=== PATIENT | female | born 1955 | race Caucasian/White ===

== ENCOUNTER → 2024-12-24 | Emergency (ER) | payer BC ==
[~2024-12-24] VITALS: Ht 172.7 cm; Wt 61.5 kg
[~2024-12-24] MED LIST: METH4TAB81 PO
[2024-12-24 07:21] VITALS: BP 144/84; PULSE 84; RESP 16; TEMP 97.8; O2SAT 99
--- NOTE | 2024-12-24 08:23 | Physician Documentation ---
History of Present Illness General Chief Complaint: Rash Stated Complaint: HIVES Time Seen by MD: 08:18 History of Present Illness Initial Comments The patient is a 69-year-old female with no significant past medical history who presents with hives that woke her up about 3:00 a.m. in the morning. She did not have any wheezing or respiratory symptoms. Medication Reconciliation Allergies: Coded Allergies: No Known Allergies (Unverified , 12/24/24) Review of Systems ROS Constitutional: Denies chills, fatigue, fever, weight gain or weight loss. HEENT: Denies hearing loss, sinus pressure or visual changes. Respiratory: Denies cough, shortness of breath or wheezing. Cardiovascular: Denies chest pain, pain while walking (claudication), edema or palpitations. Gastrointestinal: Denies abdominal pain, blood in stool, constipation, diarrhea, heartburn, loss of appetite, nausea or vomiting. Genitourinary: Denies painful urination (dysuria), excessive amount of urine (polyuria) or urinary frequency. Metabolic/Endocrine: Denies cold intolerance, heat intolerance, excessive thirst (polydipsia) or excessive hunger (polyphagia). Neurological: Denies dizziness, extremity numbness, extremity weakness, headaches, seizures or tremors. Psychiatric: Denies anxiety or depression. Integumentary: Hives, generalized Musculoskeletal: Denies back pain, joint pain, joint swelling or neck pain. Hematologic: Denies easily bleeding, easily bruises, lymphedema or issues with blood clots. Immunologic: Denies food allergies or seasonal allergies. Physical Exam Physical Exam Vital Signs: Temperature: 97.8, Heart Rate: 84, Respiratory Rate: 16, BP: 144/84, Pulse Oximetry: 99, Weight: 61.450 Oxygen Flow Rate: 0 Physical Exam Physical Exam Vitals and nursing note reviewed. Constitutional: General: Patient is awake, alert, oriented x 4 in no acute distress and well appearing. Speech is clear and lucid. Appearance: Normal appearance. Patient is not ill-appearing, toxic-appearing or diaphoretic. HENT: Head: Normocephalic and atraumatic. Mouth/Throat: Mouth: Mucous membranes are moist. Pharynx: Oropharynx is clear. Eyes: General: No scleral icterus. Extraocular Movements: Extraocular movements intact. Pupils: Pupils are equal, round, and reactive to light. Neck: Supple, no Kernig or Brudzinski sign. Cardiovascular: Rate and Rhythm: Normal rate and regular rhythm. Heart sounds: No murmur heard. Pulmonary: Effort: No respiratory distress. Breath sounds: No wheezing, rhonchi or rales. Abdominal: General: There is no distension. Palpations: There is no fluid wave, hepatomegaly or mass. Tenderness: There is no abdominal tenderness. There is no guarding. Musculoskeletal: General: No swelling or deformity. Skin: Coloration: Skin is not jaundiced. Findings: Scattered hives on arms, chest and buttocks Neurological: Mental Status: Patient is alert. Progress Results/Orders Results/Orders Vital Signs 12/24/24 07:21 Temp 97.8 Pulse 84 Resp 16 B/P (MAP) 144/84 Pulse Ox 99 O2 Flow Rate 0 Medical Decision Making Findings The patient presents with scattered hives and no respiratory or oropharyngeal symptoms. She has had no new exposures though she finished some antibiotics two days ago after gum surgery. She did take some Benadryl earlier that helped partially. I am going to discharge her with a prescription for a Medrol Dosepak. Departure Disposition: HOME / SELF CARE / HOMELESS Impression: Primary Impression: Urticaria Condition: Stable Additional Instructions: You have been evaluated for hives. I have sent a prescription for a Medrol Dosepak (steroid) to [facility] in [place]. Please begin this today. Return here for worsening symptoms or new/unusual symptoms. Prescriptions Methylprednisolone (Medrol Dosepak) 4 Mg Tab.ds.pk 4 MG PO DAILY, #1 TAB 1 dose pack per packaging Prov: LAITH HAIDER MD 12/24/24 Education Educated: Patient Educated regarding: diagnosis, treatment, prognosis, need for follow up Signature Scribe Signature: . Attestation: . LAITH HAIDER MD Dec 24, 2024 08:23
== END | disposition home or self-care (01) ==
LOC: ER 07:11
DX: L50.9 Urticaria, unspecified (principal)
CPT/HCPCS: 99283